=== PATIENT | male | born 1970 | race Caucasian/White ===

== ENCOUNTER 2021-01-10 07:24 | Emergency (ER) | payer MEDICARE, OTHER ==
[~2021-01-10 07:24] MED LIST: ATARAX25 MG PO; COREG 6.25MG6.25 MG PO; COUMADIN5 MG PO; FLEXERIL10 MG PO; INDERAL LA80 MG PO; MACROBID100 MG PO; PRINIVIL20 MG PO; RISPERDAL 1MG TA1 MG PO; ULTRAM50 MG PO; VOLTAREN **OUT50 MG PO; ZANTAC150 MG PO
[2021-01-10] MEDS ORDERED: PREDNISONE 20MG20 MG PO (09:55)
[2021-01-10] MEDS ORDERED: ULTRAM50 MG PO (09:55)
[2021-01-10] MEDS ORDERED: CYCLOBENZAPRINE10 MG PO (09:55)
== END 2021-01-10 10:00 | disposition home or self-care (01) ==
LOC: FER 07:24
DX: M54.16 Radiculopathy, lumbar region (principal); I10 Essential (primary) hypertension; E11.9 Type 2 diabetes mellitus without complications; Z88.0 Allergy status to penicillin
CPT/HCPCS: 72110

== ENCOUNTER 2021-02-10 05:46 | Emergency (ER) | payer MEDICARE, OTHER ==
[~2021-02-10 05:46] MED LIST changes: +CYCLOBENZAPRINE10 MG PO; +PREDNISONE 20MG20 MG PO
[2021-02-10] MEDS ORDERED: NORCO 5-325 TA1 EACH PO ×2 (06:41→06:44)
== END 2021-02-10 06:49 | disposition home or self-care (01) ==
LOC: FER 05:46
DX: M54.5 Low back pain (principal); G89.29 Other chronic pain; F17.200 Nicotine dependence, unspecified, uncomplicated; B20 Human immunodeficiency virus [HIV] disease; Z88.0 Allergy status to penicillin
CPT/HCPCS: 99283

== ENCOUNTER 2021-02-17 09:33 | Emergency (ER) | payer MEDICARE, OTHER ==
[~2021-02-17 09:33] MED LIST changes: +NORCO 5-325 TA1 EACH PO
== END 2021-02-17 10:43 | disposition home or self-care (01) ==
LOC: FER 09:33
DX: G89.29 Other chronic pain (principal); M54.5 Low back pain; E11.9 Type 2 diabetes mellitus without complications; I10 Essential (primary) hypertension; F17.210 Nicotine dependence, cigarettes, uncomplicated
CPT/HCPCS: 96372; 99283; J2270; J2405